=== PATIENT | female | born 1975 | race Two or more races ===

== ENCOUNTER 2023-10-02 15:25 | Inpatient (IN) | payer OTHER ==
[~2023-10-02] VITALS: Ht 157.5 cm; Wt 77.6 kg
--- NOTE | 2023-10-02 16:32 | NUR ---
PACIENTE ALERTA Y ORIENTADO X3, INDICA TENER LA HEMOGLOBINA EN 6. SE MONITOREAN VS Y SE UBICA
[2023-10-02] MEDS ORDERED: 0.9 % SODIUM CHLORIDE 1,000 ML IV ONE (16:45)
[2023-10-02] MEDS ORDERED: FAMOTIDINE/PF 20 MG/2 ML VIAL IV ONE (16:45)
[2023-10-02] MEDS ORDERED: ONDANSETRON HCL 2 MG/ML VIAL IV ONE (16:45)
--- NOTE | 2023-10-02 17:12 | NUR ---
SE ORIENTA PTE SOBRE TX A SEGUIR, LA MISMA REFIERE ENTENDER. SE WILL MUESTRAS DE LAB, SE CANALIZA X2 EN BRAZO JOON Y SE ADMINISTRAN MEDS TRIPP ORDEN MEDICA BAJO MEDIDAS ASEPTICAS
[2023-10-02 17:21] LABS: HEMATOCRIT 24.2 % (36.0-45.00); MEAN CORPUSCULAR HGB CONC 29.5 g/dl (32.0-36.0); PLATELET COUNT 277 K/uL (150-450); RED BLOOD COUNT 3.95 M/uL (4.00-6.00)
[2023-10-02 17:27] LABS: HEMOGLOBIN 7.1 g/dL (12.0-15.00); MEAN CELL VOLUME 61.2 fL (80.00-100.00); MEAN CORPUSCULAR HEMOGLOBIN 17.9 pg (27.00-32.0)
[2023-10-02 17:38] LABS: INR 1.02; PARTIAL THROMBOPLASTIN TIME 27.2 SECONDS (22.0-34.0); PROTHROMBIN TIME 10.7 SECONDS (9.0-11.5)
[2023-10-02 17:42] LABS: ALBUMIN 3.8 gm/dL (3.4-5.0); BILIRUBIN TOTAL 0.26 mg/dL (0.3-1.2); CALCIUM 9.2 mg/dL (8.5-10.1); CREATININE SERUM 0.85 mg/dL (0.55-1.02); GFR 71.69; GLOBULINA 4.5 G/DL (2.4-3.5); POTASSIUM 3.52 mEq/L (3.5-5.1); TOTAL PROTEIN 8.3 gm/dL (6.4-8.2)
[2023-10-02 18:40] LABS: PH,URINE 5.5 (5.0-8.0); URINE APPEARANCE Clear; URINE BILIRRUBIN Negative (NEGATIVE); URINE BLOOD Negative; URINE COLOR Yellow; URINE GLUCOSE Negative (NEGATIVE); URINE LEUKOCYTE Negative; URINE NITRATE Negative; URINE PROTEIN 30 (NEGATIVE); URINE UROBILINOGEN 0.2 E.U./dl
--- NOTE | 2023-10-02 18:40 | NUR ---
SE REQUISA 3 UNIDADES PRBC'S A PACIENTE. SE LLAMA A PERSONAL DE [place] Y MS KIRAN VERBALIZA QUE PACIENTE NO TIENE RECORD PREVIO. SE CARRIE PERMISO DE TRANSFUCION Y SE ADJUNTA EL MISMO EN RECORD DE PACIENTE.
[2023-10-02 18:43] LABS: URINE EPITHELIAL CELLS 39.8 uL (0.0-38.8); URINE RBC 17.9 uL (0.0-20.8); URINE WBC 52.4 uL (0.0-23.2)
[2023-10-02] MEDS ORDERED: FAMOTIDINE/PF 20 MG in 0.9 % SODIUM CHLORIDE 8 ML IV PUSH SCH (18:55)
[2023-10-02] MEDS ORDERED: ONDANSETRON HCL 4 MG in 0.9 % SODIUM CHLORIDE 50 ML IV PRN (19:00)
[2023-10-02] MEDS ORDERED: 0.9 % SODIUM CHLORIDE 1,000 ML IV SCH (19:00)
[2023-10-02] MEDS ORDERED: ACETAMINOPHEN 500 MG GEL..CAP PO PRN (19:00)
[2023-10-04 01:13] LABS: HEMATOCRIT 33.8 % (36.0-45.00); HEMOGLOBIN 10.7 g/dL (12.0-15.00); MEAN CORPUSCULAR HEMOGLOBIN 21.3 pg (27.00-32.0); MEAN CORPUSCULAR HGB CONC 31.6 g/dl (32.0-36.0); PLATELET COUNT 255 K/uL (150-450); RED BLOOD COUNT 5.01 M/uL (4.00-6.00)
[2023-10-04 01:14] LABS: MEAN CELL VOLUME 67.4 fL (80.00-100.00); RED CELL DISTRIBUTION WIDTH 23.5 % (11.5-14.5)
== END 2023-10-04 11:18 | disposition home or self-care (01) | DRG 812 ==
LOC: ER 15:26 → MEDJ 19:56
PROVIDERS: Nurse Practitioner Family; ADMIT Internal Medicine; ATTEND Internal Medicine
PROC: 30233N1 Transfusion of Nonautologous Red Blood Cells into Peripheral Vein, Percutaneous Approach (ICD-10-PCS; principal; 2023-10-03)
DX: D62 Acute posthemorrhagic anemia (principal); D64.9 Anemia, unspecified; N93.9 Abnormal uterine and vaginal bleeding, unspecified; N92.0 Excessive and frequent menstruation with regular cycle; D25.9 Leiomyoma of uterus, unspecified

== ENCOUNTER 2025-03-27 16:53 | Inpatient (IN) | payer OTHER ==
[~2025-03-27] VITALS: Ht 157.5 cm; Wt 63.5 kg
[2025-03-27 20:43] LABS: BASO % 0.6 % (0.1-1.2); EOS # 0.10 (0.04-0.54); EOS % 1.6 % (0.7-7.0); LYMPH # 1.69 (1.18-3.74); LYMPH % 26.4 % (19.3-53.1); MEAN PLATELET VOLUME 10.70 fl (9.4-12.4); MONO # 0.32 (0.24-0.82); MONO % 5.0 % (4.7-12.5); NEUT # 4.22 (1.56-6.13); NEUT % 66.1 % (34.0-71.1); RED CELL DISTRIBUTION WIDTH 18.8 % (11.6-14.4)
[2025-03-27 21:09] LABS: INR 1.03
[2025-03-27 21:20] LABS: ALT/SGPT 17.0 U/L (12-78); AST/SGOT 15.0 U/L (15-37); BILIRUBIN TOTAL 0.29 mg/dL (0.3-1.2); BUN CREA RATIO 11.0 (7.0-25.0); CREATININE SERUM 0.73 mg/dL (0.55-1.02); GFR 85.09; GLOBULINA 4.1 G/DL (2.4-3.5); GLUCOSE FASTING 98.0 mg/dL (65-100); OSMOLALITY SERUM 283.0 MOSM/KG (275-295); TSH 2.78 uIU/mL (0.358-3.74)
[2025-03-27] MEDS ORDERED: FAMOTIDINE/PF 20 MG in 0.9 % SODIUM CHLORIDE 8 ML IV PUSH SCH (21:44)
[2025-03-27] MEDS ORDERED: 0.9 % SODIUM CHLORIDE 1,000 ML IV SCH (21:45)
[2025-03-27] MEDS ORDERED: ACETAMINOPHEN 500 MG GEL..CAP PO PRN (21:45)
[2025-03-28 00:34] LABS: URINE APPEARANCE Clear; URINE BILIRRUBIN Negative (NEGATIVE); URINE BLOOD Large; URINE COLOR Yellow; URINE GLUCOSE Negative (NEGATIVE); URINE KETONE Negative (NEGATIVE); URINE LEUKOCYTE Negative; URINE NITRATE Negative; URINE PROTEIN Trace (NEGATIVE); URINE UROBILINOGEN 0.2 E.U./dl
[2025-03-28 00:35] LABS: URINE BACTERIA 226.7 uL (0.0-1933); URINE EPITHELIAL CELLS 18.6 uL (0.0-38.8); URINE RBC 204.5 uL (0.0-20.8); URINE WBC 13.3 uL (0.0-23.2)
[2025-03-28 01:01] LABS: URINE CAST 0.00 uL (0.0-1.40)
[2025-03-28 01:07] LABS: COVID-19 AG NEGATIVE (NEGATIVE)
[2025-03-28 02:37] VITALS: BP 124/82; O2SAT 97
[2025-03-28] MEDS ORDERED: IRON FUM,PS/FOLIC/BCOMP,C NO.9 1 CAP CAPSULE PO SCH (09:00)
[2025-03-28 10:13] VITALS: BP 134/80; O2SAT 99
[2025-03-28 17:52] VITALS: BP 127/75; O2SAT 98
[2025-03-29 03:13] VITALS: BP 127/83; O2SAT 99
[2025-03-29 09:16] VITALS: BP 130/83; O2SAT 95
[2025-03-29 10:11] LABS: BASO % 0.6 % (0.1-1.2); EOS # 0.17 (0.04-0.54); EOS % 2.4 % (0.7-7.0); LYMPH # 1.81 (1.18-3.74); LYMPH % 25.2 % (19.3-53.1); MONO # 0.45 (0.24-0.82); MONO % 6.3 % (4.7-12.5); NEUT # 4.56 (1.56-6.13); NEUT % 63.5 % (34.0-71.1); RED CELL DISTRIBUTION WIDTH 19.4 % (11.6-14.4)
[2025-03-29 18:24] VITALS: BP 134/84; O2SAT 98
[2025-03-30 01:20] VITALS: BP 130/85; O2SAT 98
[2025-03-30 08:47] VITALS: BP 117/66; O2SAT 99
== END 2025-03-30 10:40 | disposition home or self-care (01) | DRG 812 ==
LOC: ER 16:53 → MEDJ 22:03
PROVIDERS: General Practice; ADMIT Internal Medicine; ATTEND Internal Medicine
PROC: 30233N1 Transfusion of Nonautologous Red Blood Cells into Peripheral Vein, Percutaneous Approach (ICD-10-PCS; principal; 2025-03-28)
DX: D64.9 Anemia, unspecified (principal); D25.9 Leiomyoma of uterus, unspecified